=== PATIENT | female | born 1975 | race Caucasian/White ===

== ENCOUNTER 2020-05-13 08:51 | Emergency (ER) | payer OTHER ==
[~2020-05-13] VITALS: Ht 157.5 cm; Wt 57.3 kg
[2020-05-13] VITALS (7 sets, daily range): BP systolic 106–126; BP diastolic 53–66
[2020-05-13] MEDS ORDERED: NS 1,000 ML IV ONE (09:15)
[2020-05-13] MEDS ORDERED: PANTOPRAZOLE 40MG VIAL (C9113 PER 1) IV ONE ×2 (09:15→13:00)
[2020-05-13] MEDS ORDERED: ONDANSETRON 4MG/2ML VIAL As Ordered ONE (09:37)
[2020-05-13] MEDS ORDERED: ONDANSETRON 4MG/2ML VIAL IV ONE (09:45)
[2020-05-13] MEDS ORDERED: [UNRECOGNIZED DRUG - CODE] GT (09:49)
[2020-05-13] MEDS ORDERED: NITR0.4S14 SL (09:49)
[2020-05-13] MEDS ORDERED: GNP45TAB2 PO (09:49)
[2020-05-13] MEDS ORDERED: SUCR1TA PO (09:49)
[2020-05-13] MEDS ORDERED: AMLO25TA PO (09:49)
[2020-05-13] MEDS ORDERED: LORA2CON5 PO (09:49)
[2020-05-13] MEDS ORDERED: FERR150C PO (09:49)
[2020-05-13 10:10] LABS: BASO # 0.1 10^3/uL (0.0-0.2); BASO % 1.1 % (0.0-1.0); EOS # 0.1 10^3/uL (0.0-0.5); EOS % 1.4 % (0.0-3.0); LYMPH # 1.5 10^3/uL (1.5-5.0); LYMPH % 26.9 % (24.0-44.0); MEAN CORPUSCULAR HEMOGLOBIN 29.5 pg (27.0-33.0); MEAN CORPUSCULAR HGB CONC 30.1 g/dl (32.0-36.5); MEAN CORPUSCULAR VOLUME 97.9 fl (80.0-96.0); MONO # 0.6 10^3/uL (0.0-0.8); MONO % 9.8 % (0.0-5.0); NEUTROPHILS # 3.4 10^3/uL (1.5-8.5); NEUTROPHILS % 60.1 % (36.0-66.0); PLATELET COUNT, AUTOMATED 350 10^3/uL (150-450); WHITE BLOOD COUNT 5.6 10^3/uL (4.0-10.0)
[2020-05-13 10:12] LABS: HEMATOCRIT 18.6 % (36.0-47.0); INR 1.17; PROTHROMBIN TIME 15.2 SECONDS (11.8-14.0)
[2020-05-13 10:14] LABS: HEMOGLOBIN 5.6 g/dl (12.0-15.5)
[2020-05-13 10:31] LABS: ALBUMIN 2.2 GM/DL (3.2-5.2); ALT/SGPT 36 U/L (12-78); BILIRUBIN,DIRECT 0.1 MG/DL (0.0-0.2); BILIRUBIN,TOTAL 0.3 MG/DL (0.2-1.0); CK-MB VALUE MASS 2.3 NG/ML (<3.6); CPK CREATINE PHOSPHOKINASE 160 U/L (26-192); ETHYL ALCOHOL (ETHANOL) 0.018 % (0.000-0.010); LIPASE 34 U/L (73-393); MB/CK RELATIVE INDEX 1.44 (< OR =4); TOTAL PROTEIN 4.3 GM/DL (6.4-8.2); TROPONIN I < 0.02 NG/ML (< 0.10)
[2020-05-13] MEDS: GASTROGRAFIN SOLUTION 30ML PO SCH ×2 (10:40→11:10)
[2020-05-13 10:54] LABS: BLOOD UREA NITROGEN 12 MG/DL (7-18); CALCIUM LEVEL 7.6 MG/DL (8.5-10.1); CARBON DIOXIDE LEVEL 17 MEQ/L (21-32); CHLORIDE LEVEL 108 MEQ/L (98-107); CREATININE FOR GFR 0.59 MG/DL (0.55-1.30); GLOMERULAR FILTRATION RATE > 60.0 (>58); GLUCOSE, FASTING 154 MG/DL (70-100); POTASSIUM SERUM 3.8 MEQ/L (3.5-5.1); SODIUM LEVEL 141 MEQ/L (136-145)
[2020-05-13] MEDS ORDERED: GASTROGRAFIN SOLUTION 30ML (Q9963) As Ordered ONE (11:11)
[2020-05-13] MEDS ORDERED: fentaNYL 100 MCG/2 ML INJECTION (J3010) IV ONE (11:30)
[2020-05-13] MEDS ORDERED: ISOVUE-370 76% 100ML VIAL As Ordered ONE (11:34)
--- NOTE | 2020-05-13 12:13 | REPVR ---
PROCEDURE INFORMATION: Exam: CT Abdomen And Pelvis With Contrast Exam date and time: 05/13/2020 11:51 AM Age: 44 years old Clinical indication: Abdominal pain; Other: /p gastric bypass - pain/bleeding; Additional info: S/P gastric bypass - pain/bleeding TECHNIQUE: Imaging protocol: Computed tomography of the abdomen and pelvis with intravenous contrast. Radiation optimization: All CT scans at this facility use at least one of these dose optimization techniques: automated exposure control; mA and/or kV adjustment per patient size (includes targeted exams where dose is matched to clinical indication); or iterative reconstruction. Contrast material: ISOVUE 370; Contrast volume: 100 ml; Contrast route: INTRAVENOUS (IV); COMPARISON: No relevant prior studies available. FINDINGS: Lungs: Left lower lobe bleb and mild interstitial prominence. Liver: Fatty infiltration of the liver. Gallbladder and bile ducts: Status post cholecystectomy. Pancreas: No pancreatic mass or ductal dilatation. Spleen: No splenomegaly. Adrenals: Subtle left adrenal nodularity. Kidneys and ureters: High attenuation 1.4 cm right renal cyst. No hydronephrosis. Stomach and bowel: Status post gastric bypass with mild gastric wall thickening. Mild small bowel dilatation without a transition zone. Colonic wall thickening, consistent with colitis in the appropriate clinical setting. Appendix: No acute appendicitis. Intraperitoneal space: No significant free fluid. Vasculature: Normal caliber of the abdominal aorta. Lymph nodes: Subcentimeter lymph nodes. Bladder: Normal bladder morphology. Reproductive: Unremarkable as visualized. Bones/joints: Degenerative change . Soft tissues: Subcutaneous edema. IMPRESSION: 1. Status post gastric bypass with mild gastric wall thickening. 2. Colonic wall thickening, consistent with colitis in the appropriate clinical setting. 3. Additional findings as described above. Electronically signed by: Allan Paula On 05/13/2020 12:12:52 PM
[2020-05-13] MEDS ORDERED: PROMETHAZINE INJ 25 MG/ML VIAL (J2550) IV ONE (12:15)
[2020-05-13] MEDS ORDERED: PANTOPRAZOLE SODIUM 40 MG in D5W 50 ML IV SCH (13:00)
[2020-05-13] MEDS ORDERED: MORPHINE 4 MG/ML 1ML VIAL/SYRINGE (J2270) IV PRN (14:30)
--- NOTE | 2020-05-24 09:16 | ECGEPIP ---
[facility] - ED Test Date: 2020-05-13 Pat Name: YOSELYN MARCOS Department: Room: - Gender: Female [employer]: RIP : 1975 Requested By: Jacki Veloz Order Number: [id number] Reading MD: Jacki Veloz Measurements Intervals [place] Rate: 121 P: 62 SC: 100 QRS: 59 QRSD: 82 T: -11 QT: 338 QTc: 480 Interpretive Statements SINUS TACHYCARDIA WITH SHORT SC INTERVAL NONSPECIFIC ST & T-WAVE ABNORMALITY ABNORMAL ECG SEE SCANNED DOWNTIME REPORT
== END 2020-05-13 14:48 | disposition short-term general hospital (02) ==
LOC: M ED 08:51
DX: K92.1 Melena (principal); R10.30 Lower abdominal pain, unspecified; J45.909 Unspecified asthma, uncomplicated; R53.1 Weakness; Z98.84 Bariatric surgery status
CPT/HCPCS: 36415; 36430; 74177; 80047; 80048; 80076; 82550; 82553; 83605; 83690; 85025; 85610; 86850; 86900; 86901; 86920; 93005; 93041; 96360; 96361; 96374; 96375; 96376; 99285; C9113; G0480; J2270; J2405; J3010; P9016; Q9967; U0002